=== PATIENT | male | born 1990 | race Caucasian/White ===

== ENCOUNTER 2016-08-21 10:39 | Emergency (ER) | payer OTHER ==
--- NOTE | ~2016-08-21 | CR127 ---
[facility] A Service of [facility] RADIOLOGY TEXT RESULTS PATIENT: BETTY MONTGOMERY LOCATION: SED : 86 UNIT #: [id number] AGE: [address]: Thais Hernadez APRN SEX: M ORDER DR: [id number] [address] [id number] MR#: [id number] Acc #: [id number] NAME: BETTY MONTGOMERY : 1990 SEX: M STUDY DATE/TIME: 08/21/2016 10:53 UNIT: SED ROOM: STUDY DESCRIPTION: CR Foot Complete Min 3 View Rt Attending Physician: Thais Hernadez A.P.R.N. Ordering Physician: Thais Rahman A.P.R.N. Primary Care Physician: No Primary Care Physician MEDICAL IMAGING REPORT This report is preliminary unless electronic signature is present. EXAM Right foot INDICATION Right foot pain laterally since this morning. FINDINGS The tarsal, metatarsal, and phalangeal elements are all anatomically normal in position and alignment. There are no articular defects. No fractures or radiopaque foreign bodies in the soft tissues are apparent. IMPRESSION Normal foot. Dictated by... Lb Dawson M.D. THIS IS AN ELECTRONICALLY VERIFIED REPORT Lb Dawson M.D. at 08/21/2016 2:47 PM ROSIO/skinny TD: 08/21/2016 14:45 JOB #: [id number] MEDICAL IMAGING REPORT Page 1 of 1
[~2016-08-21 10:39] MED LIST: [UNRECOGNIZED DRUG - REMARK]
== END 2016-08-21 11:46 | disposition home or self-care (01) ==
LOC: SED 10:39
DX: L84 Corns and callosities (principal); F17.210 Nicotine dependence, cigarettes, uncomplicated
CPT/HCPCS: 73630; 99283

== ENCOUNTER 2016-09-14 16:37 | Emergency (ER) | payer OTHER | END 2016-09-14 16:40 | disposition left against medical advice (07) | LOC: SED 16:37 | DX: S01.511A Laceration without foreign body of lip, initial encounter (principal); F10.129 Alcohol abuse with intoxication, unspecified; Y90.9 Presence of alcohol in blood, level not specified; F17.200 Nicotine dependence, unspecified, uncomplicated; W22.8XXA Striking against or struck by other objects, initial encounter; Y92.009 Unspecified place in unspecified non-institutional (private) residence as the place of occurrence of the external cause | CPT/HCPCS: 99283 ==

== ENCOUNTER 2016-11-09 13:18 | Emergency (ER) | payer OTHER ==
[2016-11-09] MEDS ORDERED: NO MEDICATIONS (13:24)
== END 2016-11-09 13:52 | disposition home or self-care (01) ==
LOC: SED 13:18
DX: T67.2XXA Heat cramp, initial encounter (principal); F17.200 Nicotine dependence, unspecified, uncomplicated; X30.XXXA Exposure to excessive natural heat, initial encounter
CPT/HCPCS: 99283; J2405